=== PATIENT | male | born 1935 | race Caucasian/White ===

== ENCOUNTER → 2017-12-03 | Outpatient (CLI) | payer MEDICARE, OTHER ==
[~2017-12-03] MED LIST: CARB200C2 PO; CPAP; DONE10TA38 PO; EZET10TA3 PO; MEMA10TA3 PO; OMEP-125 PO; RANI-318 PO; SERT-184 PO; SIMV-54 PO
== END ==
LOC: LAB 15:26
DX: R97.20 Elevated prostate specific antigen [PSA] (principal)
CPT/HCPCS: 36415; 84153

== ENCOUNTER → 2019-05-04 | Outpatient (CLI) | payer MEDICARE, OTHER ==
[~2019-05-04] MED LIST changes: -CARB200C2 PO; +CARB200C4 PO; +FLU180SY11 IM; -OMEP-125 PO; +OMEP-126 PO
[2019-05-04 12:30] LABS: PLATELET COUNT, AUTOMATED 288 K/uL (150-450)
--- NOTE | 2019-05-04 15:45 | EKG ---
[place]AC[place] [facility] [place] NAME: Samuel Grady : [id number] MR: [id number] V: [id number] EXAM DATE: ORDERING PHYSICIAN: ANTONIO NAM TECHNOLOGIST: GLENDA Kirkpatrick Reason : IRREGULAR HR Blood Pressure : / mmHG Vent. Rate : 110 BPM Atrial Rate : 333 BPM P-R Int : 000 ms QRS Dur : 088 ms QT Int : 304 ms P-R-T Axes : 000 069 069 degrees QTc Int : 411 ms Atrial flutter with variable AV block Nonspecific T wave abnormality Abnormal ECG No previous ECGs available Referred By: ANTONIO NAM Confirmed By:
== END ==
LOC: RESP 11:01
PROVIDERS: ATTEND Family Medicine
DX: I48.91 Unspecified atrial fibrillation (principal); I48.92 Unspecified atrial flutter; I49.9 Cardiac arrhythmia, unspecified
CPT/HCPCS: 36415; 82040; 82247; 82310; 82374; 82435; 82565; 82947; 84075; 84132; 84155; 84295; 84443; 84450; 84460; 84520; 85025

== ENCOUNTER → 2019-05-08 | Outpatient (CLI) | payer MEDICARE, OTHER ==
--- NOTE | 2019-05-09 17:01 | RT HOLTER TEST ---
FACILITY: [facility] - [place] PATIENT NAME: Samuel Grady : [id number] MR: [id number] V: [id number] EXAM DATE: ORDERING PHYSICIAN: ANTONIO NAM TECHNOLOGIST: RITA Hook-up date: 2019-05-08 14:46:00 Duration: 24:00:00 Test Indications: FLUTTER, IRREGULAR RHYTHM Medications: N/A [id number] QRS complexes 758 Ventricular ectopics which represent <1 % of total QRS comp. 9110 Supraventricular ectopics which represent 8 % of total QRS comp. * Paced QRS complexes which represent % of total QRS comp. VENTRICULAR ECTOPY 703 Isolated 0 Bigeminal Cycles 23 Couplets 3 Runs 9 Beats in Runs 3 Beats LONGEST at 180 BPM at 15:18:01 2019-05-08 3 Beats FASTEST at 180 BPM at 15:18:01 2019-05-08 SUPRAVENTRICULAR ECTOPY 3466 Isolated 1627 Couplets 719 Runs 2390 Beats in Runs 9 Beats LONGEST at 112 BPM at 16:54:33 2019-05-08 3 Beats FASTEST at 189 BPM at 15:14:59 2019-05-08 HEART RATES 54 MIN at 06:13:04 2019-05-09 73 AVG 186 MAX at 11:10:06 2019-05-09 LONGEST RR 1.992 secs at 06:29:59 2019-05-09 S-T LEVELS Channel 1 -12.800 mm MIN at 14:46:00 2019-05-08 -12.800 mm MAX at 14:46:00 2019-05-08 Channel 2 -12.800 mm MIN at 14:46:00 2019-05-08 -12.800 mm MAX at 14:46:00 2019-05-08 Channel 3 -12.800 mm MIN at 14:46:00 2019-05-08 -12.800 mm MAX at 14:46:00 2019-05-08 Sinus rhythm Intermittent Atrial fibrillation Atrial flutter Premature ventricular complexes Premature atrial complexes Confirmed by RADHA BURGOS ([id number]) on 05/09/2019 4:57:25 PM Referred By: Overread By: RADHA BURGOS
== END ==
LOC: RESP 14:24
PROVIDERS: ATTEND Family Medicine
DX: I48.92 Unspecified atrial flutter (principal); I49.2 Junctional premature depolarization
CPT/HCPCS: 93225; 93226